=== PATIENT | female | born 1985 | race Caucasian/White ===

== ENCOUNTER 2018-02-27 10:18 | Emergency (ER) | payer MEDICAID ==
[~2018-02-27] VITALS: Ht 152.4 cm; Wt 77.1 kg
[2018-02-27 10:34] VITALS: Ht 152.4 cm; Wt 77.1 kg
[2018-02-27 11:40] VITALS: BP 121/76
== END 2018-02-27 11:40 | disposition home or self-care (01) ==
LOC: ED 10:18
DX: H00.013 Hordeolum externum right eye, unspecified eyelid (principal); I10 Essential (primary) hypertension; F25.9 Schizoaffective disorder, unspecified; F32.9 Major depressive disorder, single episode, unspecified; Z88.0 Allergy status to penicillin; Z88.1 Allergy status to other antibiotic agents

== ENCOUNTER 2018-03-08 23:15 | Emergency (ER) | payer MEDICAID ==
[~2018-03-08] VITALS: Ht 152.4 cm; Wt 54.4 kg
[2018-03-08 23:18] VITALS: Ht 152.4 cm; Wt 54.4 kg
[2018-03-09 04:01] VITALS: BP 119/80
== END 2018-03-09 04:01 | disposition home or self-care (01) ==
LOC: ED 23:15
DX: S29.011A Strain of muscle and tendon of front wall of thorax, initial encounter (principal); M94.0 Chondrocostal junction syndrome [Tietze]; F31.9 Bipolar disorder, unspecified; Z88.0 Allergy status to penicillin; Z88.1 Allergy status to other antibiotic agents; X58.XXXA Exposure to other specified factors, initial encounter; Y93.89 Activity, other specified; Y92.89 Other specified places as the place of occurrence of the external cause; Y99.8 Other external cause status
CPT/HCPCS: J1885

== ENCOUNTER 2018-04-02 10:06 | Emergency (ER) | payer MEDICAID ==
[~2018-04-02] VITALS: Ht 162.6 cm; Wt 78.7 kg
[2018-04-02 10:15] VITALS: BP 114/71; Ht 162.6 cm; Wt 78.7 kg
== END 2018-04-02 11:02 | disposition home or self-care (01) ==
LOC: ED 10:06
DX: H01.004 Unspecified blepharitis left upper eyelid (principal); Z88.0 Allergy status to penicillin; Z88.1 Allergy status to other antibiotic agents; E11.9 Type 2 diabetes mellitus without complications; F31.9 Bipolar disorder, unspecified

== ENCOUNTER 2018-08-10 08:23 | Emergency (ER) | payer MEDICAID ==
[~2018-08-10] VITALS: Ht 152.4 cm; Wt 82.6 kg
[2018-08-10 08:39] VITALS: BP 131/71; Ht 152.4 cm; Wt 82.6 kg
== END 2018-08-10 09:19 | disposition home or self-care (01) ==
LOC: ED 08:23
DX: J06.9 Acute upper respiratory infection, unspecified (principal); E11.9 Type 2 diabetes mellitus without complications; F31.9 Bipolar disorder, unspecified; Z88.0 Allergy status to penicillin; Z88.1 Allergy status to other antibiotic agents
CPT/HCPCS: Q0092

== ENCOUNTER 2019-06-29 10:11 | Emergency (ER) | payer MEDICAID ==
[~2019-06-29] VITALS: Ht 152.4 cm; Wt 79.8 kg
[2019-06-29 10:22] VITALS: Ht 152.4 cm; Wt 79.8 kg
[2019-06-29 12:00] VITALS: BP 121/79
== END 2019-06-29 12:00 | disposition home or self-care (01) ==
LOC: ED 10:11
DX: B36.9 Superficial mycosis, unspecified (principal); N76.0 Acute vaginitis; E11.9 Type 2 diabetes mellitus without complications; F31.9 Bipolar disorder, unspecified; F17.210 Nicotine dependence, cigarettes, uncomplicated; Z88.0 Allergy status to penicillin; Z79.2 Long term (current) use of antibiotics
CPT/HCPCS: 87491; 87591; 99406

== ENCOUNTER 2019-10-30 14:10 | Emergency (ER) | payer MEDICAID ==
[~2019-10-30] VITALS: Ht 152.4 cm; Wt 78.9 kg
[2019-10-30 14:22] VITALS: Ht 152.4 cm; Wt 78.9 kg
[2019-10-30 15:43] LABS: BASOPHIL % 0.3 % (0-2); PLATELET COUNT 346 x10^3mcL (130-400); RED CELL DISTRIBUTION WIDTH 13.1 % (11.5-14.5)
[2019-10-30 16:11] LABS: CALCIUM 8.5 mg/dL (8.5-10.1); CARBON DIOXIDE 28.9 mmol/L (21-32); CHLORIDE SERUM 103 mmol/L (98-107); CREATININE SERUM 0.7 mg/dL (0.6-1.0); GFR1 > 60 mL/min; GLUCOSE SERUM 122 mg/dL (74-106); POTASSIUM SERUM 4.2 mmol/L (3.5-5.1); SODIUM SERUM 139 mmol/L (136-145)
[2019-10-30 16:16] LABS: ALBUMIN 3.7 g/dL (3.4-5.0); ALKALINE PHOSPHATASE 68 U/L (46-116); ALT/SGPT 85 U/L (14-59); AST/SGOT 29 U/L (15-37); BILIRUBIN TOTAL 0.3 mg/dL (0.20-1.00); LIPASE 54 IU/L (73-393)
[2019-10-30 17:31] VITALS: BP 130/83
== END 2019-10-30 17:31 | disposition home or self-care (01) ==
LOC: ED 14:10
PROVIDERS: Emergency Medicine
DX: K29.20 Alcoholic gastritis without bleeding (principal); E11.9 Type 2 diabetes mellitus without complications; F17.210 Nicotine dependence, cigarettes, uncomplicated; Z88.0 Allergy status to penicillin; Z88.1 Allergy status to other antibiotic agents
CPT/HCPCS: 99406; J2405; J7030; Q0092

== ENCOUNTER 2020-02-10 11:29 | Emergency (ER) | payer MEDICAID ==
[~2020-02-10] VITALS: Ht 152.4 cm; Wt 78.5 kg
[~2020-02-10 11:29] MED LIST: HAL5 PO; TRAZODONE100 MG PO; V2 PO
[2020-02-10 11:46] VITALS: Ht 152.4 cm; Wt 78.5 kg
[2020-02-10 13:41] VITALS: BP 117/78
== END 2020-02-10 13:41 | disposition home or self-care (01) ==
LOC: ED 11:29
DX: F41.9 Anxiety disorder, unspecified (principal); E11.9 Type 2 diabetes mellitus without complications; F15.90 Other stimulant use, unspecified, uncomplicated; Z88.0 Allergy status to penicillin; Z88.1 Allergy status to other antibiotic agents
CPT/HCPCS: 36415

== ENCOUNTER 2020-05-04 10:59 | Emergency (ER) | payer MEDICAID ==
[~2020-05-04] VITALS: Ht 149.9 cm; Wt 74.8 kg
[2020-05-04 11:18] VITALS: BP 131/96; Ht 149.9 cm; Wt 74.8 kg
== END 2020-05-04 12:21 | disposition home or self-care (01) ==
LOC: ED 10:59
DX: F41.1 Generalized anxiety disorder (principal); F15.10 Other stimulant abuse, uncomplicated; E11.9 Type 2 diabetes mellitus without complications; Z88.0 Allergy status to penicillin; Z88.1 Allergy status to other antibiotic agents

== ENCOUNTER 2020-05-05 06:18 | Emergency (ER) | payer MEDICAID ==
[~2020-05-05] VITALS: Ht 149.9 cm; Wt 74.8 kg
[2020-05-05 06:24] VITALS: Ht 149.9 cm; Wt 74.8 kg
[2020-05-05 08:46] VITALS: BP 123/84
== END 2020-05-05 08:35 | disposition home or self-care (01) ==
LOC: ED 06:18
DX: F41.9 Anxiety disorder, unspecified (principal); F15.10 Other stimulant abuse, uncomplicated; F17.210 Nicotine dependence, cigarettes, uncomplicated; R03.0 Elevated blood-pressure reading, without diagnosis of hypertension; E11.9 Type 2 diabetes mellitus without complications; Z88.0 Allergy status to penicillin; Z88.1 Allergy status to other antibiotic agents
CPT/HCPCS: 99406

== ENCOUNTER 2020-06-15 10:18 | Emergency (ER) | payer MEDICAID ==
[~2020-06-15] VITALS: Ht 152.4 cm; Wt 76.7 kg
[2020-06-15 10:28] VITALS: Ht 152.4 cm; Wt 76.7 kg
[2020-06-15 11:58] LABS: microscopic required? YES; urine erythrocyte TRACE (NEGATIVE)
[2020-06-15 14:17] VITALS: BP 111/68
== END 2020-06-15 14:17 | disposition home or self-care (01) ==
LOC: ED 10:18
PROVIDERS: Emergency Medicine
DX: N76.0 Acute vaginitis (principal); E11.9 Type 2 diabetes mellitus without complications; F17.210 Nicotine dependence, cigarettes, uncomplicated; Z71.6 Tobacco abuse counseling; Z88.0 Allergy status to penicillin; Z88.1 Allergy status to other antibiotic agents
CPT/HCPCS: 82962; 87491; 87591; 99406

== ENCOUNTER 2020-06-30 10:02 | Emergency (ER) | payer MEDICAID ==
[~2020-06-30] VITALS: Ht 152.4 cm; Wt 74.8 kg
[2020-06-30 10:32] VITALS: Ht 152.4 cm; Wt 74.8 kg
[2020-06-30 12:28] VITALS: BP 139/41
== END 2020-06-30 12:28 | disposition home or self-care (01) ==
LOC: ED 10:02
DX: T40.5X1A Poisoning by cocaine, accidental (unintentional), initial encounter (principal); E11.9 Type 2 diabetes mellitus without complications; F15.10 Other stimulant abuse, uncomplicated; Z88.0 Allergy status to penicillin; Z88.1 Allergy status to other antibiotic agents; Y92.89 Other specified places as the place of occurrence of the external cause
CPT/HCPCS: J1885

== ENCOUNTER 2020-09-10 19:30 | Emergency (ER) | payer MEDICAID ==
[~2020-09-10] VITALS: Ht 149.9 cm; Wt 74.8 kg
[2020-09-10 20:08] VITALS: BP 111/78; Ht 149.9 cm; Wt 74.8 kg
== END 2020-09-10 20:57 | disposition home or self-care (01) ==
LOC: ED 19:30
DX: R00.2 Palpitations (principal); F15.10 Other stimulant abuse, uncomplicated; E11.9 Type 2 diabetes mellitus without complications; Z88.0 Allergy status to penicillin; Z88.1 Allergy status to other antibiotic agents
CPT/HCPCS: J7060